=== PATIENT | female | born 1970 ===

== ENCOUNTER → 2023-03-17 | Day surgery (SDC) | payer OTHER ==
[2023-03-13 12:20] VITALS: BMI 29.7
[2023-03-17 10:35] VITALS: TEMP 97.8
[2023-03-17 12:21] VITALS: BP 115/70; PULSE 65; RESP 16
== END | disposition home or self-care (01) ==
LOC: JASU-ENDO 04:26
PROVIDERS: ATTEND Internal Medicine Gastroenterology
PROC: 0DBN8ZX Excision of Sigmoid Colon, Via Natural or Artificial Opening Endoscopic, Diagnostic (ICD-10-PCS; principal; 2023-03-17 10:45)
DX: Z12.11 Encounter for screening for malignant neoplasm of colon (principal); D12.5 Benign neoplasm of sigmoid colon; K64.8 Other hemorrhoids; K57.30 Diverticulosis of large intestine without perforation or abscess without bleeding
CPT/HCPCS: 88305-TC